=== PATIENT | female | born 1945 | race Caucasian/White ===

== ENCOUNTER 2016-09-15 20:49 | Emergency (ER) | payer MEDICARE, OTHER ==
[2016-09-15] MEDS ORDERED: OXYCODONE-ACETAMINOPHEN 5-325 MG TABLET PO ONE (23:29)
[2016-09-15] MEDS ORDERED: ONDANSETRON 4 MG TAB.RAPDIS PO ONE (23:29)
--- NOTE | 2016-09-15 23:32 | ER Document Report ---
ED Medical Screen (RME) - General Chief Complaint: Wrist Injury Stated Complaint: FELL/RIGHT WRIST PAIN Time Seen by Provider: 09/15/16 23:29 Notes: 71-year-old female, chief complaint of right wrist injury, swelling, deformity after she lost her balance and partially fell out of a chair, landing with her outstretched wrist/hand on the ground. She denies head injury, she denies blood thinner use. She states she took a tramadol before getting here but it is not helping. TRAVEL OUTSIDE OF THE [place] IN LAST 30 DAYS: No - Related Data Allergies/Adverse Reactions: No Known Allergies Allergy (Unverified 09/15/16 23:29) Past Medical History Renal/ Medical History: Denies: Hx Peritoneal Dialysis Physical Exam - Vital signs Vitals: Temp Pulse Resp BP Pulse Ox 97.9 F 85 20 145/78 H 97 09/15/16 21:13 09/15/16 21:13 09/15/16 21:13 09/15/16 21:13 09/15/16 21:13 - Extremities General upper extremity: Other - right wrist with swelling, questionable deformity; radial pulse intact, sensation and capillary refill intact, normal UE exam otherwise Course - Re-evaluation Re-evalutation: Concern for deformity on examination, patient asking for something for pain by mouth, given Percocet, Zofran, calling x-ray to have it performed now. - Vital Signs Vital signs: Temp Pulse Resp BP Pulse Ox 97.9 F 85 20 145/78 H 97 09/15/16 21:13 09/15/16 21:13 09/15/16 21:13 09/15/16 21:13 09/15/16 21:13
[2016-09-15] MEDS ORDERED: OXYCODONE-ACETAMINOPHEN 5-325 MG TABLET ONE (23:33)
[2016-09-15] MEDS ORDERED: ONDANSETRON 4 MG TAB.RAPDIS ONE (23:33)
--- NOTE | 2016-09-15 23:56 | RADIOLOGY REPORT (SQ) ---
EXAM DESCRIPTION: WRIST RIGHT 3 VIEWS COMPLETED DATE/TIME: 09/15/2016 11:41 pm REASON FOR STUDY: deformity to right wrist. COMPARISON: None. NUMBER OF VIEWS: Three views. TECHNIQUE: AP, lateral, and oblique radiographic images acquired of the right wrist. LIMITATIONS: None. FINDINGS: MINERALIZATION: Normal. BONES: Mildly comminuted distal radius fracture with intra-articular extension, no significant step-o ff. Mild dorsal angulation. SOFT TISSUES: Moderate soft tissue swelling. No foreign body. OTHER: No other significant finding. IMPRESSION: Mildly comminuted distal radius fracture with intra-articular extension, no significant step-off. Mild dorsal angulation. TECHNICAL DOCUMENTATION: JOB ID: [id number] [employer]- All Rights Reserved
[2016-09-16] MEDS ORDERED: PROPOFOL INJ 200 MG/20 ML VIAL IV ONE (00:39)
--- NOTE | 2016-09-16 02:06 | ER Document Report ---
ED General - General Chief Complaint: Wrist Injury Stated Complaint: FELL/RIGHT WRIST PAIN Time Seen by Provider: 09/15/16 23:29 Notes: Patient is a 71-year-old female who presents after a fall on an outstretched right hand. She is right-hand dominant. She denies any head or neck injury. Reports a severe, constant, throbbing pain to the right wrist. Any attempt at moving the wrist worsens the pain. She has not tried anything to improve her pain. Denies any history of similar injury in the past. She has not seen a primary care doctor regarding today's concerns. TRAVEL OUTSIDE OF THE [place] IN LAST 30 DAYS: No - Related Data Allergies/Adverse Reactions: No Known Allergies Allergy (Unverified 09/15/16 23:29) Past Medical History - General Information source: Patient - Social History Smoking Status: Never Smoker Frequency of alcohol use: None Drug Abuse: None Lives with: Family Family History: Reviewed & Not Pertinent Patient has suicidal ideation: No Patient has homicidal ideation: No Renal/ Medical History: Denies: Hx Peritoneal Dialysis - Immunizations Hx Diphtheria, Pertussis, Tetanus Vaccination: No Review of Systems - Review of Systems Notes: Constitutional: Negative for fever. Eyes: Negative for visual changes. ENT: Negative for facial injury Cardiovascular: Negative for chest injury. Respiratory: Negative for shortness of breath. Gastrointestinal: Negative for abdominal injury. Genitourinary: Negative for genital injury Musculoskeletal: Positive for right hand injury Skin: Negative for laceration/abrasions. Neurological: Negative for head injury. Physical Exam - Vital signs Vitals: Temp Pulse Resp BP Pulse Ox 97.9 F 85 20 145/78 H 97 09/15/16 21:13 09/15/16 21:13 09/15/16 21:13 09/15/16 21:13 09/15/16 21:13 Interpretation: Hypertensive Notes: PHYSICAL EXAMINATION: GENERAL: Appears uncomfortable and in pain HEAD: Atraumatic, normocephalic. EYES: Pupils equal round and reactive to light, extraocular movements intact, sclera anicteric, conjunctiva are normal. ENT: nares patent, oropharynx clear without exudates. Moist mucous membranes. NECK: Normal range of motion, supple without lymphadenopathy LUNGS: Breath sounds clear to auscultation bilaterally and equal. No wheezes rales or rhonchi. HEART: Regular rate and rhythm without murmurs ABDOMEN: Soft, nontender, normoactive bowel sounds. No guarding, no rebound. No masses appreciated. EXTREMITIES: Obvious deformity of the right wrist. AIN, PIN, and intact. RMU sensory distribution intact. NEUROLOGICAL: No focal neurological deficits. Moves all extremities spontaneously and on command. PSYCH: Normal mood, normal affect. SKIN: Warm, Dry, normal turgor, no rashes or lesions noted. Course - Re-evaluation Re-evalutation: 09/16/16 01:56 Patient presents after a fall on an outstretched hand and sustained a comminuted distal radius fracture with intra-articular communication and slight dorsal angulation. RMU sensory and motor distribution within normal limits. 2 + radial pulses. She did not sustain any head or neck trauma. Procedural sedation was performed for reduction of the angulation of the distal radius. A sugar tong splint was placed. Postreduction films will be obtained. Patient will follow-up with orthopedic surgery within the next 1 week. 09/16/16 02:13 Postreduction films to show improvement of alignment. Patient is awake, talking and eating without difficulty. Remains neurovascularly intact. At this time will discharge with return precautions and follow-up recommendations. Verbal discharge instructions given a the bedside and opportunity for questions given. Medication warnings reviewed. Patient is in agreement with this plan and has verbalized understanding of return precautions and the need for primary care follow-up in the next 24-72 hours. - Vital Signs Vital signs: Temp Pulse Resp BP Pulse Ox 97.9 F 71 13 128/83 H 100 09/15/16 21:13 09/16/16 01:57 09/16/16 02:04 09/16/16 02:04 09/16/16 02:04 - Diagnostic Test Radiology reviewed: Image reviewed, Reports reviewed Radiology results interpreted by me: 09/16/16 01:56 Right wrist film: Distal radius comminuted fracture with dorsal angulation 09/16/16 02:14 Repeat wrist films: Improvement of the dorsal angulation. Fracture is again seen. Procedures - Conscious Sedation Conscious sedation Time started: 01:44 Time completed: 01:55 Consent obtained: Yes Indication: Right wrist reduction Prior complications: Procedural sedation Pt with a mild systemic disease.: P2. - ASA Classification. Airway Evaluation: Normal anatomy Mallampati Classification: Class 1 Used during procedure: Suction available, IV access obtained, Pulse ox on pt., painter supervisor on pt. Medications administered: Diprivan Reversal agents: None I personally performed/intraservice time: Sedation, Procedure, 30 min or less Complications: No - Immobilization Right Wrist Pre-Proc Neuro Vasc Exam: Normal Immobilizer type: Sugar tong Performed by: Provider assisted Post-Proc Neuro Vasc Exam: Normal Alignment checked and good: Yes - Joint Reduction/Fracture Care Right Wrist Time completed: 01:55 Consent obtained: Yes Conscious sedation: Yes Pre-procedure NV exam: Yes Fracture: Closed Manipulation comment: Hyperextension and direct traction Post-procedure NV exam: Yes Post-reduction x-ray: Joint reduced Reduction attempts: 1 Complications: Yes Discharge - Discharge Clinical Impression: Closed fracture of right distal radius Qualifiers: Encounter type: initial encounter Fracture morphology: unspecified fracture morphology Qualified Code(s): S52.501A - Unspecified fracture of the lower end of right radius, initial encounter for closed fracture Fall Qualifiers: Encounter type: initial encounter Qualified Code(s): W19.XXXA - Unspecified fall, initial encounter Condition: Good Disposition: HOME, SELF-CARE Additional Instructions: You have broken one of the bones in your right wrist. You need to keep the splint on until you follow-up with orthopedic surgery. Return if you develop weakness, numbness, discoloration of the fingers, significantly increasing pain , or any other symptoms that are worrisome to you. For your pain: Take acetaminophen 1000 mg every 6 hours as needed for pain. If this does not control your pain you may take 15 mg of oral morphine every 4 hours as needed. Please be very careful about using the oral morphine and only use this for severe pain. Prescriptions: Morphine Sulfate [Morphine Ir 15 mg Tablet] 15 mg PO Q4HP PRN #12 tablet PRN Reason: Referrals: POLO COLLINS [Primary Care Provider] - Follow up as needed VERONICA GOMES MD [ACTIVE STAFF] - Follow up in 1 week
[2016-09-16 02:10] VITALS: BP 128/83
--- NOTE | 2016-09-16 02:35 | RADIOLOGY REPORT (SQ) ---
EXAM DESCRIPTION: WRIST RIGHT 2 VIEWS COMPLETED DATE/TIME: 09/16/2016 2:14 am REASON FOR STUDY: post reduction COMPARISON: 09/15/2016. NUMBER OF VIEWS: Two views. TECHNIQUE: AP and lateral radiographic images acquired of the right wrist. LIMITATIONS: None. FINDINGS: MINERALIZATION: Normal. BONES: Interval reduction of a previously described distal radial fracture site near anatomic alignme nt as seen through casting -bandaging material. SOFT TISSUES: No soft tissue swelling. No foreign body. OTHER: No other significant finding. IMPRESSION: Interval reduction. TECHNICAL DOCUMENTATION: JOB ID: [id number] [employer]- All Rights Reserved
== END 2016-09-16 02:20 | disposition home or self-care (01) ==
LOC: ER 20:49
PROC: 0PSHXZZ Reposition Right Radius, External Approach (ICD-10-PCS; principal; 2016-09-15)
DX: S52.501A Unspecified fracture of the lower end of right radius, initial encounter for closed fracture (principal); W19.XXXA Unspecified fall, initial encounter
CPT/HCPCS: 25605; 99283; 99152; 73100; 73110; A9270 ×2; J2704; S0119